=== PATIENT | female | born 1955 | race Caucasian/White ===

== ENCOUNTER 2023-07-12 09:13 | Emergency (ER) | payer MEDICAID ==
[~2023-07-12] VITALS: Ht 160 cm; Wt 75.0 kg
[2023-07-12 09:27] VITALS: O2SAT 99
[2023-07-12 10:06] LABS: BASOPHILS % 0.8 % (0.0-2.0); EOSINOPHILS % 0.2 % (0.0-5.0); HEMATOCRIT. 43.2 % (36.0-48.0); HEMOGLOBIN. 14.7 g/dL (12.0-16.0); LYMPHOCYTES % 18.4 % (20.0-50.0); MEAN CORPUSCULAR VOLUME 88.3 fL (81.0-99.0); MEAN PLATELET VOLUME 9.2 fl (7.4-10.4); MONOCYTES % 3.5 % (2.0-8.0); NEUTROPHILS % 77.1 % (40.0-76.0); PLATELET 280 x1000/uL (130-400); RED BLOOD CELL COUNT 4.89 mill/uL (4.2-5.4); RED CELL DISTRIBUTION WIDTH 13.8 % (11.6-14.6); WHITE BLOOD COUNT 10.8 x1000/uL (4.5-11.0)
[2023-07-12] MEDS: SODIUM CHLORIDE 0.9% 1,000 ML IV ONE ×2 (10:21→14:27)
[2023-07-12 10:28] LABS: ALANINE AMINOTRANSFERASE 9 IU/L (10-49); ALBUMIN 4.5 g/dL (3.2-4.8); ASPARTATE AMINOTRANSFERASE 15 IU/L (<34); BILIRUBIN TOTAL 0.6 mg/dL (0.1-1.0); CALCIUM 9.2 mg/dL (8.7-10.4); CARBON DIOXIDE 23 mEq/L (21-32); CHLORIDE 105 mEq/L (98-107); CREATININE 0.7 mg/dL (0.6-1.0); GLUCOSE 171 mg/dL (70-105); POTASSIUM 3.3 mEq/L (3.5-5.1); PROTEIN TOTAL 7.6 g/dL (6.0-8.3); SODIUM 136 mEq/L (136-145); UREA NITROGEN BLOOD 13 mg/dL (9-23)
[2023-07-12] MEDS: ONDANSETRON HCL 4MG/2ML INJ IV ONE (10:38)
[2023-07-12 10:49] LABS: TROPONIN I HIGH SENSITIVITY < 4 ng/L (3.0-34)
[2023-07-12] MEDS: MECLIZINE 25MG TABLET PO ONE (12:05)
[2023-07-12] MEDS: POTASSIUM CHLORIDE 20MEQ/PACKET PO ONE (12:07)
[2023-07-12] MEDS: METOCLOPRAMIDE HCL 10MG/2ML VIAL IV ONE (12:26)
[2023-07-12 13:26] LABS: CLARITY URINE CLEAR (CLEAR); COLOR URINE YELLOW (YELLOW); GLUCOSE URINE NEGATIVE (NEGATIVE); KETONES URINE 2+ (NEGATIVE); LEUKOCYTE ESTERASE URINE NEGATIVE (NEGATIVE); NITRITE URINE NEGATIVE (NEGATIVE); OCCULT BLOOD URINE NEGATIVE (NEGATIVE); PROTEIN URINE NEGATIVE (NEGATIVE); SPECIFIC GRAVITY URINE 1.018 (1.005-1.030); UROBILINOGEN URINE 0.2 E.U./dL (0.2-1.0)
[2023-07-12] MEDS ORDERED: MECL-299 MT (15:47)
[2023-07-12 16:12] VITALS: BP 162/81; PULSE 94; RESP 19; TEMP 97.8
== END 2023-07-12 16:18 | disposition home or self-care (01) ==
LOC: ER 09:13
DX: R42 Dizziness and giddiness (principal); R11.2 Nausea with vomiting, unspecified; E87.6 Hypokalemia
CPT/HCPCS: 80053; 81003; 85025; 84484; 36415; 70450; 93005; 96361; 96374; 96375; 99285; J8597; J2765; J2405; J7030; Z7610 ×4